=== PATIENT | male | born 1945 | race Caucasian/White ===

== ENCOUNTER 2016-09-25 01:06 | Emergency (ER) | payer MEDICARE, OTHER ==
[~2016-09-25] VITALS: Ht 177.8 cm; Wt 98.0 kg
[2016-09-25 01:09] VITALS: BP 143/76; PULSE 95; RESP 16; TEMP 98.2; O2SAT 96
[2016-09-25] MEDS ORDERED: CARV12.5 PO (01:46)
[2016-09-25] MEDS ORDERED: VITA2000 PO (01:46)
[2016-09-25] MEDS ORDERED: METF1000 PO (01:46)
[2016-09-25] MEDS ORDERED: MAGN400C2 PO (01:46)
[2016-09-25] MEDS ORDERED: SERT25TA83 PO (01:46)
[2016-09-25] MEDS ORDERED: NEXI40CA PO (01:46)
[2016-09-25] MEDS ORDERED: LEVO150T7 PO (01:46)
[2016-09-25] MEDS ORDERED: WARF-21 PO (01:46)
[2016-09-25] MEDS ORDERED: CHLO25TA2 PO (01:46)
[2016-09-25] MEDS ORDERED: ATOR40TA16 PO (01:46)
[2016-09-25 02:27] LABS: AUTOMATED NEUTROPHIL # 5.7 TH/MM3 (1.8-7.7); BASOPHIL # 0.1 TH/MM3 (0-0.2); BASOPHIL % 0.7 % (0.0-2.0); EOSINOPHIL # 0.1 TH/MM3 (0-0.4); HEMATOCRIT 35.3 % (39.0-51.0); HEMO FLAGS DIFF FINAL; LYMPH % 27.7 % (9.0-44.0); LYMPHOCYTE # 2.6 TH/MM3 (1.0-4.8); MEAN CELL VOLUME 89.7 FL (80.0-100.0); MEAN CORPUSCULAR HGB CONC 34.6 % (32.0-36.0); MONO % 10.6 % (0.0-8.0); PLATELET COUNT 244 TH/MM3 (150-450); RED BLOOD COUNT 3.93 MIL/MM3 (4.50-5.90); RED CELL DISTRIBUTION WIDTH 13.2 % (11.6-17.2); WHITE BLOOD COUNT 9.4 TH/MM3 (4.0-11.0)
[2016-09-25 02:39] LABS: INTERNATIONAL NORMALIZED RATIO 1.9 RATIO; PROTHROMBIN TIME - PATIENT 21.1 SEC (9.8-11.6)
--- NOTE | 2016-09-25 03:26 | RADRPT ---
EXAM DATE/TIME: 09/25/2016 02:37 [facility] COMPARISON: No previous studies available for comparison. INDICATIONS : Trauma, fall. Abrasion to right forehead. RADIATION DOSE: 35.14 CTDIvol (mGy) MEDICAL HISTORY : Hypertension. Diabetes. SURGICAL HISTORY : None. ENCOUNTER: Initial ACUITY: 1 day PAIN SCALE: 5/10 LOCATION: cranial TECHNIQUE: Multiple contiguous axial images were obtained of the head. Using automated exposure control and adj ustment of the mA and/or kV according to patient size, radiation dose was kept as low as reasonably a chievable to obtain optimal diagnostic quality images. DICOM format image data is available electro nically for review and comparison. FINDINGS: CEREBRUM: The ventricles are normal for age. No evidence of midline shift, mass lesion, hemorrhage or acute in farction. No extra-axial fluid collections are seen. POSTERIOR FOSSA: The cerebellum and brainstem are intact. The 4th ventricle is midline. The cerebellopontine angle i s unremarkable. EXTRACRANIAL: The visualized portion of the orbits is intact. Right frontal soft tissue contusion. SKULL: The calvaria is intact. No evidence of skull fracture. CONCLUSION: 1. Right frontal soft tissue contusion. 2. No acute intracranial abnormality. Michael Nava MD on September 25, 2016 at 3:23 Board Certified Radiologist. This report was verified electronically.
--- NOTE | 2016-09-25 03:27 | RADRPT ---
EXAM DATE/TIME: 09/25/2016 02:37 [facility] COMPARISON: No previous studies available for comparison. INDICATIONS : Trauma, fall. Abrasion to right forehead. RADIATION DOSE: 21.13 CTDIvol (mGy) MEDICAL HISTORY : None SURGICAL HISTORY : None. ENCOUNTER: Initial ACUITY: 1 day PAIN SCALE: 0/10 LOCATION: neck TECHNIQUE: Volumetric scanning of the cervical spine was performed. Multiplanar reconstructions in the sagittal, coronal and oblique axial planes were performed. Using automated exposure control and adjustment o f the mA and/or kV according to patient size, radiation dose was kept as low as reasonably achievable to obtain optimal diagnostic quality images. DICOM format image data is available electronically f or review and comparison. FINDINGS: VERTEBRAE: Normal vertebral body height. Mild degenerative changes. No fracture. ALIGNMENT: No evidence of subluxation. C2-C3: The bony spinal canal is normal in size. No evidence of disc bulge or herniation. The neural forami na are bilaterally patent. C3-C4: The bony spinal canal is normal in size. No evidence of disc bulge or herniation. The neural forami na are bilaterally patent. C4-C5: The bony spinal canal is normal in size. No evidence of disc bulge or herniation. The neural forami na are bilaterally patent. C5-C6: The bony spinal canal is normal in size. No evidence of disc bulge or herniation. The neural forami na are bilaterally patent. C6-C7: The bony spinal canal is normal in size. No evidence of disc bulge or herniation. The neural forami na are bilaterally patent. C7-T1: The bony spinal canal is normal in size. No evidence of disc bulge or herniation. The neural forami na are bilaterally patent. CONCLUSION: No fracture or subluxation. Michael Nava MD on September 25, 2016 at 3:24 Board Certified Radiologist. This report was verified electronically.
--- NOTE | 2016-09-25 03:56 | PD ---
HPI Chief Complaint: Fall Time Seen by Provider: 01:42 Travel History International Travel<30 days: No Contact w/Intl Traveler<30days: No Traveled to known affect area: No History of Present Illness HPI Patient 70-year-old male presents emergency department after a trip and fall, follow-up occurred several hours prior to arrival in the emergency department. The patient states he was playing miniature golf and didn't anticipate that he' ll he was walking over on the course loss his balance and fell forward. He describes a purely mechanical fall. He bumped the right side of his head as well as a small abrasions to the left forearm and right elbow. His wounds are cleaned and dressed by the patient's granddaughter. He does take Coumadin and states his last Coumadin was therapeutic to check once a month. Denies any loss of consciousness denies any focal weakness visual difficulties chest pain shortness of breath or abdominal pain PFSH Past Medical History Hx Anticoagulant Therapy: Yes (COUMADIN) Cardiovascular Problems: Yes (DVT) Diabetes: Yes Patient Takes Glucophage: Yes (METFORMIN 09/24/16 [id number]) Hypertension: Yes Tetanus Vaccination: < 5 Years Influenza Vaccination: Yes Past Surgical History Abdominal Surgery: Yes (HERNIA.) Other Surgery: Yes (SKIN CANCER REMOVAL BILAT EARS.) Social History Alcohol Use: Yes (2 WEEKS) Tobacco Use: No Substance Use: No Allergies-Medications (Allergen,Severity, Reaction): Coded Allergies: Codeine (Verified Adverse Reaction, Severe, Rash, 09/25/16) Reported Meds & Prescriptions Reported Meds & Active Scripts Active Reported Atorvastatin (Atorvastatin Calcium) 40 Mg Tab 50 Mg PO HS Warfarin 7.5 Mg Tab 7 Mg PO DAILY Magnesium Oxide 400 Mg Cap 1 Tab PO DAILY Chlorthalidone 25 Mg Tab 12.5 Mg PO M,W,F Sertraline (Sertraline HCl) 25 Mg Tab 25 Mg PO DAILY Nexium (Esomeprazole DR) 40 Mg Capdr 40 Mg PO DAILY Vitamin D3 (Cholecalciferol) 2,000 Unit Cap 2,000 Units PO DAILY Coreg (Carvedilol) 12.5 Mg Tab 12.5 Mg PO BID Metformin (Metformin HCl) 1,000 Mg Tab 1,000 Mg PO BIDPC With meals Levothyroxine (Levothyroxine Sodium) 150 Mcg Tab 150 Mcg PO DAILY Review of Systems Except as stated in HPI: all other systems reviewed are Neg Physical Exam Narrative GENERAL: Well-nourished, well-developed patient. SKIN: They're really superficial scrapes to the patient's right upper arm, left forearm. Very unimpressive, very clean. No bleeding, no wounds requiring closure. There is also an abrasion/bruise in the right side of his face, also well cleaned and no wounds requiring closure. HEAD: Normocephalic. No llamas signs no raccoons eyes. EYES: No scleral icterus. No injection or drainage. NECK: Supple, trachea midline. No JVD or lymphadenopathy. CARDIOVASCULAR: Regular rate and rhythm without murmurs, gallops, or rubs. RESPIRATORY: Breath sounds equal bilaterally. No accessory muscle use. GASTROINTESTINAL: Abdomen soft, non-tender, nondistended. MUSCULOSKELETAL: Abrasions as above, no bony tenderness, full nontender range of motion in all joints of the upper and lower extremities. Compartments are soft. Pulses motor and sensory intact distally in all [address] or L-spine tenderness. Neurological: Cranial nerves II through XII are grossly intact and nonfocal, 5 out of 5 strength in all 4 extremities, alert and awake and oriented. Ambulates without any difficulty. BACK: Nontender without obvious deformity. No CVA tenderness. Data Data Last Documented VS Vital Signs Date Time Temp Pulse Resp B/P Pulse Ox O2 Delivery O2 Flow Rate FiO2 09/25/16 01:09 98.2 95 16 143/[address] Brain W/O Iv Contrast(Rout) (09/25/16 ) Ct Cerv Spine W/O Contrast (09/25/16 ) Prothrombin Time / Inr (Pt) (09/25/16 01:58) Complete Blood Count With Diff (09/25/16 01:58) Labs Laboratory Tests Test 09/25/16 02:15 White Blood Count 9.4 TH/MM3 Red Blood Count 3.93 MIL/MM3 Hemoglobin 12.2 GM/DL Hematocrit 35.3 % Mean Corpuscular Volume 89.7 FL Mean Corpuscular Hemoglobin 31.0 PG Mean Corpuscular Hemoglobin 34.6 % Concent Red Cell Distribution Width 13.2 % Platelet Count 244 TH/MM3 Mean Platelet Volume 8.1 FL Neutrophils (%) (Auto) 60.0 % Lymphocytes (%) (Auto) 27.7 % Monocytes (%) (Auto) 10.6 % Eosinophils (%) (Auto) 1.0 % Basophils (%) (Auto) 0.7 % Neutrophils # (Auto) 5.7 TH/MM3 Lymphocytes # (Auto) 2.6 TH/MM3 Monocytes # (Auto) 1.0 TH/MM3 Eosinophils # (Auto) 0.1 TH/MM3 Basophils # (Auto) 0.1 TH/MM3 CBC Comment DIFF FINAL Differential Comment Prothrombin Time 21.1 SEC Prothromb Time International 1.9 RATIO Ratio MDM Medical Decision Making Medical Screen Exam Complete: Yes Emergency Medical Condition: Yes Differential Diagnosis Fall, closed head injury, multiple abrasions. Narrative Course Patient roomed in emergency department, images were obtained of his head and neck, INR is 1.9. No indication for adjustment of Coumadin at this time. Last [address] 09/25/16 0000 Signed Impressions: Service Date/Time: September 02:37 - CONCLUSION: 1. Right frontal soft tissue contusion. 2. No acute intracranial abnormality. Michael Nava MD Cervical Spine CT 09/25/16 0000 Signed Impressions: Service Date/Time: September 02:37 - CONCLUSION: No fracture or subluxation. Michael Nava MD Discussed the results with the patient and recommended following up with his primary care physician and discussed fall prevention. He stable for discharge at this time. Tetanus status is up-to-date. Diagnosis Primary Impression: Closed head injury Disposition: DISCHARGE HOME Condition: Stable Antelmo Matias MD Sep 25, 2016 03:56
== END 2016-09-25 05:15 | disposition home or self-care (01) ==
LOC: NEPE 01:06
DX: S00.81XA Abrasion of other part of head, initial encounter (principal); S50.812A Abrasion of left forearm, initial encounter; S50.311A Abrasion of right elbow, initial encounter; I10 Essential (primary) hypertension; E11.9 Type 2 diabetes mellitus without complications; W18.39XA Other fall on same level, initial encounter; Y93.53 Activity, golf; Y92.838 Other recreation area as the place of occurrence of the external cause; Z79.01 Long term (current) use of anticoagulants
CPT/HCPCS: 70450; 72125; 85025; 85610